=== PATIENT | male | born 1990 | race American Indian/Alaskan Native ===

== ENCOUNTER 2021-08-28 10:00 | Emergency (ER) | payer SELFPAY ==
[2021-08-28 10:08] VITALS: BP 130/65
[2021-08-28] MEDS ORDERED: HYDROcodone/ACETAMINOPHEN 7.5-325MG TAB PO ONE (11:31)
--- NOTE | 2021-08-28 11:49 | Emergency Department Report ---
ED Back Pain/Injury HPI - General Chief Complaint: Back Pain/Injury Stated Complaint: BACK PAIN Time Seen by Provider: 08/28/21 10:17 Source: patient Limitations: No Limitations - History of Present Illness Initial Comments: The patient was evaluated in the emergency department for symptoms described in the history of present illness. He/she was evaluated in the context of the global COVID-19 pandemic, which necessitated consideration that the patient might be at risk for infection with the virus that causes COVID-19. Institutional protocols and algorithms that pertain to the evaluation of patients at risk for COVID-19 are in a state of rapid change based on information released by regulatory bodies including the CDC and federal and state organizations. These policies and algorithms were followed during the patient's care in the emergency department. Please note that these policies, procedures and recommendations changed on a rapid basis. 31-year-old -Italian male presents to the emergency room complaining of lower back pain that is sharp and radiates down since Friday. Patient states he is has difficulty walking. Reports he has been taking ibuprofen which helps some but the pain returns. Him admits to urinary frequency but no fever chills no nausea no vomiting no urinary incontinent. States he does not work at this time as he had an injury in May on his right Achilles that was severed and still has a metal piece. Patient denies any past medical history takes no medications on a daily basis and has no known drug allergies. MD Complaint: back pain Onset/Timin Similar Symptoms Previously: No Place: home Severity: mild, moderate Severity scale (0 -10): 8 Quality: sharp, stabbing Consistency: constant Improves With: none Worsens With: none Associated Symptoms: difficulty walking, other (Urinary frequency). denies: difficulty urinating - Related Data Allergies Allergy/AdvReac Type Severity Reaction Status Date / Time squash Allergy Unknown Anaphylaxis Verified 08/28/21 10:04 ED Review of Systems ROS: Stated complaint: BACK PAIN Other details as noted in HPI Comment: All other systems reviewed and negative ED Physical Exam - General Limitations: No Limitations General appearance: alert, in no apparent distress - Head Head exam: Present: atraumatic, normocephalic - Eye Eye exam: Present: normal appearance - ENT ENT exam: Present: mucous membranes moist - Neck Neck exam: Present: normal inspection - Respiratory Respiratory exam: Present: normal lung sounds bilaterally. Absent: respiratory distress - Cardiovascular Cardiovascular Exam: Present: regular rate, normal rhythm. Absent: systolic murmur, diastolic murmur, rubs, gallop - GI/Abdominal GI/Abdominal exam: Present: soft, normal bowel sounds - Rectal Rectal exam: Present: deferred - Extremities Exam Extremities exam: Present: normal inspection - Back Exam Back exam: Present: normal inspection - Neurological Exam Neurological exam: Present: alert, oriented X3 - Psychiatric Psychiatric exam: Present: normal affect, normal mood - Skin Skin exam: Present: warm, dry, intact, normal color. Absent: rash ED Course Vital Signs 08/28/21 10:07 Temperature 97.5 F L Pulse Rate 75 Respiratory 15 Rate Blood Pressure 130/65 O2 Sat by Pulse 98 Oximetry ED Medical Decision Making - Radiology Data Radiology results: report reviewed [address] [address] XRay Report Signed Patient: EVELIN PIERCE MR#: [id number] : 1990 Acct:[id number] Age/Sex: 31 / M ADM Date: 08/28/21 Loc: ED Attending Dr: Ordering Physician: FANTASMA ALLISON Date of Service: 08/28/21 Procedure(s): XR spine thoracolumbar 2V Accession Number(s): [id number] cc: FANTASMA ALLISON Fluoro Time In Minutes: Thoracolumbar spine 2 views INDICATION: Back pain IMPRESSION: Minimal discogenic and facet arthropathy of the thoracic spine. The upper lumbar spine is grossly unremarkable. Of note, the upper thoracic spine is not image on this exam. Signer Name: Tom Silva MD Signed: 08/28/2021 12:32 PM Workstation Name: [id number] Transcribed By: Dictated By: Tom Silva MD Electronically Authenticated By: Tom Silva MD Signed Date/Time: 08/28/21 1232 DD/ 1231 TD/TT: Print Cancel - Medical Decision Making 31-year-old -Italian male presents to the emergency room complaining of lower back pain that is sharp and radiates down since Friday. Patient states he is has difficulty walking. Reports he has been taking ibuprofen which helps some but the pain returns. Him admits to urinary frequency but no fever chills no nausea no vomiting no urinary incontinent. States he does not work at this time as he had an injury in May on his right Achilles that was severed and still has a metal piece. Patient denies any past medical history takes no me dications on a daily basis and has no known drug allergies. The patient presents with acute back pain. The patient is now resting comfortably and feels better, is alert talkative interactive and in no distress. Repeat examination is unremarkable and benign. The patient is neurologically intact and is ambulatory in the ED. Patient has no fever, no bowel or bladder incontinence, no saddle anesthesia, and is otherwise alert and well-appearing. The history physical examination and diagnostic( if any) do not suggest the presence of acute spinal epidural abscess, acute spinal epidural bleed, cauda equina syndrome, abdominal aortic aneurysm, aortic dissection or other process requiring further testing, treatment or consultation in the emergency department. The vital signs have been stable. The patient's condition is stable and appropriate for discharge. The patient will pursue further outpatient evaluation with a primary care physician or other designated or consulting physician as indicated in the discharge instructions. X-rays are negative for any acute findings. Urinalysis is negative for any infection Critical care attestation.: If time is entered above; I have spent that time in minutes in the direct care of this critically ill patient, excluding procedure time. ED Disposition Clinical Impression: Acute back pain Disposition: 01 HOME / SELF CARE / HOMELESS Is pt being admited?: No Does the pt Need Aspirin: No Condition: Stable Instructions: Acute Back Pain, Adult Additional Instructions: X-rays are negative for any acute findings. Urinalysis is negative for any infection Referrals: PRIMARY MD ALBERTO [Primary Care Provider] - 3-5 Days [facility] [Provider Group] - 3-5 Days Forms: Accompanied Note Time of Disposition: 13:18
--- NOTE | 2021-08-28 12:36 | XRay Report ---
Lumbar spine 3 views INDICATION: Low back pain after injury IMPRESSION: No fracture or subluxation is identified. Mild multilevel discogenic and facet arthropath y primarily at L5-S1 with there is mild bilateral neural foraminal narrowing. Signer Name: Tom Silva MD Signed: 08/28/2021 12:31 PM Workstation Name: [id number]
--- NOTE | 2021-08-28 12:36 | XRay Report ---
Thoracolumbar spine 2 views INDICATION: Back pain IMPRESSION: Minimal discogenic and facet arthropathy of the thoracic spine. The upper lumbar spine is grossly unremarkable. Of note, the upper thoracic spine is not image on this exam. Signer Name: Tom Silva MD Signed: 08/28/2021 12:32 PM Workstation Name: [id number]
[2021-08-28 12:56] LABS: Bilirubin,Urine NEG (Negative); Blood,Urine NEG (Negative); Color,Urine Yellow (Yellow); Mucus,Urine FEW /HPF; Protein,Urine <15 mg/dL mg/dL (Negative); Urobilinogen,Urine < 2.0 mg/dL (<2.0); WBC,Urine < 1.0 /HPF (0.0-6.0)
== END 2021-08-28 13:59 | disposition home or self-care (01) ==
LOC: ED 10:00
DX: M54.50 Low back pain, unspecified (principal)
CPT/HCPCS: 72080; 72100; 81001; 99283